=== PATIENT | female | born 1970 | race Two or more races ===

== ENCOUNTER → 2024-06-23 | Outpatient (CLI) | payer MEDICAID, SELFPAY ==
--- NOTE | 2024-06-23 | XR_ITS ---
Examination: Diagnostic digital mammography, unilateral, left Computer aided detection 3-D breast Tomosynthesis, unilateral Date and time of exam: June 23, 2024 0821 hours INDICATIONS: Mammogram February 06, 2024 10 mm focal asymmetry upper outer left breast Technique: Nonmagnified MLO, CC views of the left breast have been obtained, reconstructed from 3-D Tomosynthesis images. R2 computer aided detection program utilized for evaluation of suspicious masses and/or abnormal calcifications. 3-D Tomosynthesis images obtained. Findings: Scattered areas of fibroglandular density 4 mm circumscribed nodule on the spot compression cc view outer left breast No suspicious masses Impression: BI-RADS category 3: Probably benign findings One additional 6 month left mammogram follow-up recommended
== END | disposition home or self-care (01) ==
LOC: CDIM 07:55
PROVIDERS: Referring Provider Nurse Practitioner Family; Visit Provider Nurse Practitioner Family
DX: R92.332 Mammographic heterogeneous density, left breast (principal); N64.89 Other specified disorders of breast
CPT/HCPCS: 77061; 77065; G0279